=== PATIENT | female | born 1990 | race Caucasian/White ===

== ENCOUNTER 2021-04-01 07:55 | Outpatient (CLI) | payer BC ==
[2021-04-01 23:04] LABS: SARS-CoV-2 PCR by NAA Not Detected (NotDetected)
== END 2021-04-01 07:56 | disposition home or self-care (01) ==
LOC: CSHLAB 07:55
PROVIDERS: ATTEND Obstetrics & Gynecology
DX: Z20.822 Contact with and (suspected) exposure to COVID-19 (principal)
CPT/HCPCS: U0003; U0005

== ENCOUNTER 2021-04-01 19:30 | Inpatient (IN) | payer BC, OTHER ==
[2021-04-06 00:57] VITALS: BMI 35.9
[2021-04-06] MEDS ORDERED: Lactated Ringer's 1,000 ML IV SCH (01:57)
[2021-04-06] MEDS ORDERED: Ondansetron PF 4 MG/2 ML Vial IVP PRN ×3 (01:57→11:14)
[2021-04-06] MEDS ORDERED: hydrALAZINE 20 MG/ML VIAL SLOW IVP PRN ×2 (01:57→11:14)
[2021-04-06] MEDS ORDERED: HYDROcodone/Acetaminophen 5/325 mg Tablet PO PRN ×6 (01:57→11:14)
[2021-04-06] MEDS ORDERED: Butorphanol Tartrate 1 MG/ML VIAL SLOW IVP PRN (01:57)
[2021-04-06] MEDS ORDERED: NS w/ Oxytocin 30 units 500 ML IV SCH ×2 (01:57)
[2021-04-06] MEDS ORDERED: Lidocaine 1% (PF) 30 ML VIAL SC PRN (01:57)
[2021-04-06] MEDS ORDERED: Ibuprofen 800 MG TAB PO PRN ×2 (01:57→02:19)
[2021-04-06] MEDS ORDERED: Promethazine HCl 25 MG/ML VIAL IM PRN ×2 (01:57→03:16)
[2021-04-06 02:20] LABS: Hemoglobin 11.2 g/dL (12.0-15.5); Mean Corpuscular Hemoglobin 25.7 pg (27.0-33.0); Mean Corpuscular Volume 80.3 fl (81.6-98.3); Mean Platelet Volume 10.5 fl (7.4-10.4); Platelet Count 191 10x3/uL (150-450); RBC Distribution Width 15.9 % (11.5-14.5); Red Blood Cell (RBC) Count 4.36 10x6/uL (3.90-5.03)
[2021-04-06 02:32] LABS: Syphilis Antibody Nonreactive (Nonreactive); Syphilis Antibody Index 0.02 S/CO (<1.00 Non-Reactive)
[2021-04-06 02:33] LABS: Hep B Surf Ag Non-Reactive S/CO (NonReactive)
[2021-04-06 02:34] LABS: HBSAg Index 0.19 S/CO (0-0.99)
[2021-04-06] MEDS ORDERED: Fentanyl 2 mcg/Bup 0.1% Cadd 100 ML ONE (03:00)
[2021-04-06] MEDS ORDERED: Naloxone HCl 0.4 mg/ml Vial IVP PRN ×2 (03:16)
[2021-04-06] MEDS ORDERED: Acetaminophen 325 MG TAB PO PRN (03:16)
[2021-04-06] MEDS ORDERED: Hydrocerin (Eucerin) Cream 120 gm Jar TOP PRN (03:16)
[2021-04-06] MEDS ORDERED: ePHEDrine Sulfate 50 MG/10 ML VIAL SLOW IVP PRN (03:16)
[2021-04-06] MEDS ORDERED: Lactated Ringer's 500 ML IV PRN (03:16)
[2021-04-06] MEDS ORDERED: diphenhydrAMINE 50 MG/ML VIAL IVP PRN (03:16)
[2021-04-06] MEDS ORDERED: Fentanyl 2 mcg/Bupivacaine 0.1% Cassette 100 ML EPIDURAL SCH (03:30)
[2021-04-06] MEDS ORDERED: Communication Order-Pharmacy FS SCH (03:30)
[2021-04-06] MEDS ORDERED: Bisacodyl 10 MG SUPP PR PRN (11:14)
[2021-04-06] MEDS ORDERED: Preparation H Ointment 28 GM TUBE PR PRN (11:14)
[2021-04-06] MEDS ORDERED: diphenhydrAMINE 25 MG CAP PO PRN (11:14)
[2021-04-06] MEDS ORDERED: Milk Of Magnesia 30 ML UDCUP PO PRN (11:14)
[2021-04-06] MEDS ORDERED: Boostrix 0.5 ML (Tdap) VIAL IM ONE (11:14)
[2021-04-06] MEDS ORDERED: Benzocaine-Menthol 82.5 ML CAN TOP PRN (11:14)
[2021-04-06] MEDS: Ibuprofen 800 MG TAB PO SCH ×2 (14:34→20:29)
[2021-04-06] MEDS: Ferrous Sulfate 325 MG TAB PO SCH (14:34)
[2021-04-06] MEDS: Docusate 100 MG CAP PO SCH (20:28)
[2021-04-07] MEDS: Ibuprofen 800 MG TAB PO SCH ×2 (04:13→13:33)
[2021-04-07 07:51] VITALS: BP 117/71; TEMP 97.8
[2021-04-07] MEDS: Docusate 100 MG CAP PO SCH (08:34)
[2021-04-07] MEDS: Ferrous Sulfate 325 MG TAB PO SCH (08:36)
[2021-04-07] MEDS ORDERED: Prenatal Vitamin 1 TAB PO SCH (09:00)
== END 2021-04-07 14:13 | disposition home or self-care (01) | DRG 807 ==
LOC: CSHLD 04-06 00:33 → CSHPED 04-06 11:30
PROVIDERS: ADMIT Obstetrics & Gynecology; ATTEND Obstetrics & Gynecology
PROC: 10E0XZZ Delivery of Products of Conception, External Approach (ICD-10-PCS; principal; 2021-04-06)
PROC: 0HQ9XZZ Repair Perineum Skin, External Approach (ICD-10-PCS; 2021-04-06)
DX: O34.211 Maternal care for low transverse scar from previous cesarean delivery (principal); Z37.0 Single live birth; Z3A.40 40 weeks gestation of pregnancy; O70.0 First degree perineal laceration during delivery
CPT/HCPCS: 51702; 85027; 86780; 86850; 86900; 86901; 87340; J2405; J2590

== ENCOUNTER 2021-08-23 09:32 | Outpatient (CLI) | payer BC ==
[2021-08-23 11:00] LABS: Hemoglobin 13.1 g/dL (12.0-15.5); Mean Corpuscular HGB CONC 31.7 g/dL (32.0-36.0); Mean Corpuscular Hemoglobin 27.6 pg (27.0-33.0); Mean Corpuscular Volume 86.9 fl (81.6-98.3); Mean Platelet Volume 9.7 fl (7.4-10.4); Platelet Count 172 10x3/uL (150-450); RBC Distribution Width 14.3 % (11.5-14.5); Red Blood Cell (RBC) Count 4.75 10x6/uL (3.90-5.03); White Blood Cell (WBC) Count 5.7 10x3/uL (3.5-10.5)
[2021-08-23 11:12] LABS: BHCG - Serum Negative (NEGATIVE); Pregs Control Background? CLEAR/WHITE (CLR/WHITE); Pregs Control Bar Appear? YES (CONTROL BAR)
== END 2021-08-23 09:33 | disposition home or self-care (01) ==
LOC: CSHLAB 09:32
PROVIDERS: ATTEND Obstetrics & Gynecology
DX: Z01.812 Encounter for preprocedural laboratory examination (principal); Z20.822 Contact with and (suspected) exposure to COVID-19
CPT/HCPCS: 84703; 85027; 86850; 86900; 86901; 87811

== ENCOUNTER 2021-08-26 10:05 | Day surgery (SDC) | payer BC ==
[2021-08-24 16:11] VITALS: BMI 33.0
[2021-08-26] MEDS ORDERED: Lidocaine 1% MPF 2 ML VIAL ONE (10:22)
[2021-08-26] MEDS ORDERED: CeleCOXIB 100 MG CAP ONE (10:22)
[2021-08-26] MEDS ORDERED: Gabapentin 300 MG CAP ONE (10:22)
[2021-08-26] MEDS ORDERED: Famotidine/PF 20 mg/2ml Vial ONE (10:23)
[2021-08-26] MEDS ORDERED: Midazolam HCl 2 mg/2 ml Vial ONE ×2 (11:22→11:45)
[2021-08-26] MEDS ORDERED: PROPOFOL 20 ML ONE (11:45)
[2021-08-26] MEDS ORDERED: Ondansetron PF 4 MG/2 ML Vial ONE (11:45)
[2021-08-26] MEDS ORDERED: CEFAZOLIN 2 GM VIAL ONE (11:45)
[2021-08-26] MEDS ORDERED: Fentanyl 100 MCG/2 ML VIAL ONE (11:45)
[2021-08-26] MEDS ORDERED: Ketorolac Tromethamine 30 MG/ML VIAL ONE (11:46)
[2021-08-26] MEDS ORDERED: Dexamethasone 20 MG/5 ML VIAL ONE (11:46)
[2021-08-26] MEDS ORDERED: Rocuronium Bromide 10 MG/ML (10ML VIAL) ONE (11:47)
[2021-08-26] MEDS ORDERED: Silver Nitrate Application 1 EACH ONE (12:22)
== END 2021-08-26 14:20 | disposition home or self-care (01) ==
LOC: CSHSDC 10:05
PROVIDERS: ATTEND Obstetrics & Gynecology
PROC: 0UC98ZZ Extirpation of Matter from Uterus, Via Natural or Artificial Opening Endoscopic (ICD-10-PCS; principal; 2021-08-26)
DX: T83.32XA Displacement of intrauterine contraceptive device, initial encounter (principal); N81.6 Rectocele; Z98.890 Other specified postprocedural states; Y83.1 Surgical operation with implant of artificial internal device as the cause of abnormal reaction of the patient, or of later complication, without mention of misadventure at the time of the procedure
CPT/HCPCS: J0690; J1100; J1885; J2250; J2405; J2704; J3010; S0028

== ENCOUNTER 2023-04-06 17:06 | Emergency (ER) | payer BC ==
[2023-04-06 17:32] LABS: Bilirubin Neg (Negative); Blood, Urine Negative (Negative); Clarity Clear (Clear); Glucose, Urine (Dipstick) Normal (Negative); Ketone, Urine Negative (Negative); Leukocyte 500 (Negative); Nitrite Positive (Negative); Protein, Urine (Dipstick) Negative (Neg-Trace); Specific Gravity, Urine 1.005 (1.005-1.030); Urobilinogen Normal mg/dL (Less than 2)
[2023-04-06 17:42] LABS: CAUTI Indications for Culture Dysuria,urgency,freq; RBC/HPF 0-3 HPF (0-3)
[2023-04-06 17:43] LABS: Bacteria/HPF 2+ HPF (None Seen); Squamous Epithelial 0-3 HPF (0-3)
[2023-04-06 17:44] LABS: Urine Culture Reflex No No
== END 2023-04-06 19:30 | disposition home or self-care (01) ==
LOC: CSHERS 17:06
DX: O23.41 Unspecified infection of urinary tract in pregnancy, first trimester (principal); N39.0 Urinary tract infection, site not specified; Z3A.12 12 weeks gestation of pregnancy
CPT/HCPCS: 51702; 81001; 99283